=== PATIENT | male | born 1980 ===

== ENCOUNTER 2021-07-12 14:47 | Emergency (ER) | payer SELFPAY ==
[2021-07-12 17:12] LABS: CORONAVIRUS COVID-19 NAA POSITIVE (NEGATIVE)
[2021-07-12 17:41] LABS: ANION GAP 13.1 mEq/L (7-13)
== END 2021-07-12 19:24 | disposition home or self-care (01) ==
LOC: DL.ED 14:47
DX: U07.1 COVID-19 (principal); Z86.73 Personal history of transient ischemic attack (TIA), and cerebral infarction without residual deficits; Z88.5 Allergy status to narcotic agent; Z79.02 Long term (current) use of antithrombotics/antiplatelets
CPT/HCPCS: 0240U; 36415; 71045; 80053; 81003; 83605; 83735; 85025; 86140; 99283-25